=== PATIENT | male | born 1965 | race African-American/Black ===

== ENCOUNTER 2020-12-07 16:57 | Emergency (ER) | payer SELFPAY ==
[2020-12-07] MEDS ORDERED: Tetracaine 0.5% PF 4 ML BOT ONE (17:22)
[2020-12-07] MEDS ORDERED: Erythromycin Base 0.5% Ophth Oint 3.5 gm Tube ONE (17:27)
== END 2020-12-07 17:35 | disposition home or self-care (01) ==
LOC: MADERS 16:57
DX: H18.821 Corneal disorder due to contact lens, right eye (principal)
CPT/HCPCS: 99283